=== PATIENT | male | born 2000 | race Caucasian/White ===

== ENCOUNTER 2022-01-19 18:57 | Emergency (ER) | payer BC ==
[~2022-01-19] VITALS: Ht 185.4 cm; Wt 127.0 kg
== END 2022-01-19 21:22 | disposition home or self-care (01) ==
LOC: ER 18:57
DX: T23.251A Burn of second degree of right palm, initial encounter (principal); Z23 Encounter for immunization; X08.8XXA Exposure to other specified smoke, fire and flames, initial encounter
CPT/HCPCS: 90471; 90714; 99283-25

== ENCOUNTER 2025-09-23 10:26 | Emergency (ER) | payer OTHER, BC ==
[~2025-09-23] VITALS: Ht 188 cm; Wt 108.9 kg
[2025-09-23 12:00] VITALS: BP 119/64
== END 2025-09-23 12:04 | disposition home or self-care (01) ==
LOC: ER 10:26
DX: S60.221A Contusion of right hand, initial encounter (principal); S63.91XA Sprain of unspecified part of right wrist and hand, initial encounter; S09.90XA Unspecified injury of head, initial encounter; V29.881A Electric (assisted) bicycle rider (driver) (passenger) injured in other specified transport accidents, initial encounter
CPT/HCPCS: 73090; 73130; 99283-25; A9270